=== PATIENT | female | born 1965 | race Two or more races ===

== ENCOUNTER 2022-08-02 12:36 | Emergency (ER) | payer MEDICAID ==
[~2022-08-02] VITALS: Ht 144.8 cm; Wt 62.6 kg
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
--- NOTE | 2022-08-02 14:27 | NUR ---
CT SCAN DONE.
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
[2022-08-02] MEDS ORDERED: IBUP-1955 PO (15:28)
[2022-08-02 15:39] VITALS: BP 128/81
--- NOTE | 2022-08-02 15:40 | NUR ---
Patient discharged to home in stable condition, ambulating by self. Written and verbal after care instructions given. Patient verbalizes understanding of instruction.
== END 2022-08-02 15:40 | disposition home or self-care (01) ==
LOC: ER 12:39
DX: S00.531A Contusion of lip, initial encounter (principal); I10 Essential (primary) hypertension; Y04.2XXA Assault by strike against or bumped into by another person, initial encounter; Y93.89 Activity, other specified; Y92.89 Other specified places as the place of occurrence of the external cause; Y99.8 Other external cause status
CPT/HCPCS: 70450-TC; 70486-TC